=== PATIENT | female | born 1955 | race Caucasian/White ===

== ENCOUNTER 2023-03-21 09:00 | Outpatient (NON) | payer MEDICARE, SELFPAY | END 2023-03-21 09:01 | disposition home or self-care (01) | PROVIDERS: PCP Family Medicine; Visit Provider Internal Medicine Gastroenterology | DX: Z80.0 Family history of malignant neoplasm of digestive organs (principal) | CPT/HCPCS: 88305 ==

== ENCOUNTER 2023-03-21 09:32 | Day surgery (SDC) | payer MEDICARE, SELFPAY ==
[2023-03-01 10:34] VITALS: BMI 32.7
[2023-03-04 14:07] VITALS: BMI 33.0
--- NOTE | 2023-03-18 16:12 | PM.HPGS ---
History of Present Illness History of Present Illness Consent: Risks, benefits, and alternatives have been discussed and questions answered. Patient agrees to proceed with procedure. Chief complaint: History of Colon Polyps, FM. HX. Colon Cancer Narrative: Magaly Lopez is a 67 year old female Referred for colon cancer screening. She has a history of polyps herself. Also there is a family history of colon cancer. Her father had colon cancer. Review of Systems Review of Systems: All systems reviewed & are unremarkable except as noted in HPI and below PMFSH Past Medical History Medical History Alcohol abuse Bowel habit changes Change in weight Chronic cough Fatigue Gallbladder & bile duct stone with obstruction (~1994) Heartburn Hx of one miscarriage Incontinence Painful joint Snoring Tobacco dependence Trouble in sleeping Surgical History Surgical History H/O tubal ligation (~1975) H/O: hysterectomy (~1995) History of cholecystectomy Family History Family History Father Alcoholism Colon cancer Mother Alcoholism Lung cancer Depression Anxiety Grandparent Alcoholism Depression Anxiety Thyroid disorder Social History Social History Smoking packs per day: 1 Smoking cigarettes per day: 20.0 Years smoked: 52 Smoking pack-years: 52.00 Smoking status: Current every day smoker Tobacco type: cigarettes Second hand tobacco smoke exposure: Yes Alcohol intake: current Drinks per week: 21 Alcohol use details: beer Substance use: never Substance use type: does not use Gender identity (if verbalized by the patient): Female Spiritual care concerns: No Meds Home Medications and Allergies Home Medications Medication Instructions Recorded Confirmed Type trazodone 50 mg tablet 50 mg PO QHS PRN Insomnia 07/05/22 03/21/23 History atorvastatin 40 mg tablet 40 mg PO DAILY #90 tabs 01/20/23 03/21/23 Rx sertraline 50 mg tablet 50 mg PO DAILY 03/04/23 03/21/23 History Allergies Allergy/AdvReac Type Severity Reaction Status Date / Time codeine Allergy Unknown Unknown Verified 03/21/23 10:01 Exam Resp: Auscultation: clear to auscultation bilaterally Cardio: Rate: regular rate Rhythm: regular rhythm GI: GI Palp: Yes Soft to palpation and No Tenderness to palpation present (GI) Assessment and Plan Assessment and plan (1) Colon cancer screening: Code(s): Z12.11 - Encounter for screening for malignant neoplasm of colon Status: Acute Assessment and Plan: Colonoscopy with possible biopsy or polypectomy or cautery or injection of substances.
--- NOTE | 2023-03-21 09:29 | P.PNAN_ITS ---
Anes - Initial Pre Proc Eval Procedure: Operation Date: 03/21/23 11:00 Proposed Procedures p Diagnostic Colonoscopy - Vicente Norton MD Date/Time: 03/21/23 09:29 Surgeon: Vicente Norton MD Pre Op Diagnosis: History of Colon Polyps, FM. HX. Colon Cancer Patient Data Age: 67 Gender: F Height: 1.68 m Weight: 93 kg Allergies Allergy/AdvReac Type Severity Reaction Status Date / Time codeine Allergy Unknown Unknown Verified 03/04/23 14:03 Home Medications Medication Instructions Recorded Confirmed Type trazodone 50 mg tablet 50 mg PO QHS PRN Insomnia 07/05/22 03/04/23 History atorvastatin 40 mg tablet 40 mg PO DAILY #90 tabs 01/20/23 03/04/23 Rx sertraline 50 mg tablet 50 mg PO DAILY 03/04/23 03/04/23 History Patient hx anesthesia problems: none Family hx anesthesia problems: none Results Review: All pre-operative results and documents have been reviewed as part of the pre- operative evaluation. [facility] Past Medical History Medical History (Updated 03/21/23 @ 09:31 by Juancarlos Arce MD) Alcohol abuse Bowel habit changes Change in weight Chronic cough Fatigue Gallbladder & bile duct stone with obstruction (~1994) Heartburn Hx of one miscarriage Incontinence Painful joint Snoring Tobacco dependence Trouble in sleeping Surgical History Surgical History H/O tubal ligation (~1975) H/O: hysterectomy (~1995) History of cholecystectomy Family History Family History Father Alcoholism Colon cancer Mother Alcoholism Lung cancer Depression Anxiety Grandparent Alcoholism Depression Anxiety Thyroid disorder Social History Social History Smoking packs per day: 1 Smoking cigarettes per day: 20.0 Years smoked: 52 Smoking pack-years: 52.00 Smoking status: Current every day smoker Tobacco type: cigarettes Second hand tobacco smoke exposure: Yes Alcohol intake: current Drinks per week: 21 Alcohol use details: beer Substance use: never Substance use type: does not use Gender identity (if verbalized by the patient): Female Spiritual care concerns: No Anes - Eval Final PreProcedure Day of Procedure 03/21/23 09:29 Patient weight: obese Heart: regular rate and rhythm Lungs: clear to auscultation and normal air movement Airway: Mallampati scale class II Neurological: alert and oriented Last oral intake: >/= 8 hours ASA classification: III Emergent: no Anesthetic plan: proceed Anesthesia type and monitoring: general GIVS Results Review: All pre-operative results and documents have been reviewed as part of the pre- operative evaluation. Informed Consent: The patient's anesthetic plan and its attendant risks and benefits were discussed with the patient/family/POA. Questions were solicited and answers provided to the satisfaction of the patient/family/POA.
[2023-03-21 10:03] VITALS: BP 128/60; PULSE 82; RESP 16; TEMP 36.5; O2SAT 98
[2023-03-21] MEDS: LACTATED RINGERS 1,000 ML 150 ML IV CONT (10:13)
[2023-03-21 11:38] VITALS: BP 125/76; PULSE 76; RESP 15; O2SAT 98
[2023-03-21 11:48] VITALS: BP 134/83; PULSE 71; RESP 15; O2SAT 99
[2023-03-21 11:58] VITALS: BP 117/82; PULSE 64; O2SAT 97
--- NOTE | 2023-03-21 14:44 | WPDANESPN ---
Anes - Prog Note Post-Op Date/Time: 03/21/23 14:44 Cardiovascular status: normal Respiratory status: normal Airway patency: baseline Mental status: baseline Post-Op hydration status: normal Vital Signs: Last Vital Signs Temp 36.5 C 03/21/23 10:03 Pulse 64 03/21/23 11:58 Resp 15 03/21/23 11:48 BP 117/82 03/21/23 11:58 Pulse Ox 97 03/21/23 11:58 O2 Del Method Room Air 03/21/23 11:58 Pain Score (VAS): 0 I/O: Intake & Output 03/20/23 03/21/23 03/21/23 23:59 07:59 15:59 Intake Total 300 Balance 300 Post-procedural complaints: none Patient Feedback: Patient satisfied with anesthetic care.
--- NOTE | 2023-03-21 14:45 | SUR.OPER ---
Transverse colon tattooed with endoscopic marker Lot [id number] EXP 07/28/2023. Resolution 360 Clip applied transverse colon Lot [id number] Exp 11/08/2025
== END 2023-03-21 12:11 | disposition home or self-care (01) ==
PROVIDERS: PCP Family Medicine; Visit Provider Internal Medicine Gastroenterology
PROC: 0DJD8ZZ Inspection of Lower Intestinal Tract, Via Natural or Artificial Opening Endoscopic (ICD-10-PCS; CPT 45378; principal; 2023-03-21 11:00)
DX: Z12.11 Encounter for screening for malignant neoplasm of colon (principal)
CPT/HCPCS: 45385; 45381

== ENCOUNTER 2023-03-23 09:27 | Outpatient (CLI) | payer MEDICARE, SELFPAY ==
--- NOTE | ~2023-03-23 | MM_ITS ---
EXAMINATION: MM screening chintan BI w sylvain HISTORY: Screening mammogram TECHNIQUE: Craniocaudal and mediolateral oblique 3-D tomosynthesis images were obtained and synthetic 2-D images were generated. CAD analysis was submitted and interpreted. COMPARISON: No prior mammogram is available for comparison at this institution. BREAST PARENCHYMAL COMPOSITION: There are scattered areas of fibroglandular density. FINDINGS: No suspicious mass, calcification, or architectural distortion are identified in either mejia ast to suggest malignancy. IMPRESSION: 1. No mammographic evidence of malignancy. 2. Recommend routine screening mammography in one year. BI-RADS Category 1: Negative Reviewed, dictated and finalized at location A.
--- NOTE | ~2023-03-23 | DEXA_ITS ---
Bone Density Report Name: TAM GAY Age: 67 Sex: Female Ethnicity: White Date of : 1955 Indication: postmenopausal; screening for osteoporosis; height loss; prior fracture; hysterectomy; Referring Provider: MICHELL PUENTES Study: Bone densitometry was performed. Exam Date: March 23, 2023 Accession number: [id number] Bone Density: Region BMD T-score Z-score Classification AP Spine(L1-L4) 0.714 -3.0 -1.1 Osteoporosis Femoral Neck (Left) 0.662 -1.7 0.0 Osteopenia Total Hip (Left) 0.781 -1.3 0.1 Osteopenia Femoral Neck (Right) 0.608 -2.2 -0.5 Osteopenia Total Hip (Right) 0.762 -1.5 -0.1 Osteopenia Total Hip Mean 0.771 -1.4 0.0 Osteopenia World Health Organization criteria for BMD impression classify patients as: Normal (T-score at or above -1.0), Osteopenia (T-score between -1.0 and -2.5), or Osteoporosis (T-score at or below -2.5). 10-year Fracture Risk: FRAX not reported because: Some T-score for Spine Total or Hip Total or Femoral Neck at or below -2.5 Clinical Information Provided by Patient: Has had a low trauma fracture Smokes Has 3 or more alcoholic drinks per day Has used the following medications: Vitamin D, Calcium Has the following medical conditions: Hysterectomy Patient maximum height was 66.5 Menopause Age: 40 No regular weight bearing exercise Drinks caffeinated beverages Onset of menses at age 14 Number of children 2 Impression: The patient has established osteoporosis, based on the Total Spine T-score and the existence of a prior fracture. The patient has risk factors, including: smoking, excessive alcohol use, previous fracture. Discussion: HIGH RISK OF FRACTURE. BONE DENSITY IS UNDESIRABLY LOW AT ONE OR MORE SKELETAL SITES, CONSISTENT WITH POSTMENOPAUSAL OSTEOPOROSIS. This patient's lowest T-score, in a patient who has previously fractured, meets the World Health Organization's (WHO) criteria for severe osteoporosis. In untreated patients, the risk of osteoporotic fracture increases approximately two-fold for each 1.0 SD decrease in T-score. Low bone density is not the only risk factor for fracture; also consider factors such as patient's age, frailty or poor health, risk of falling, risk of injury, previous osteoporotic fracture, family history of osteoporosis, cigarette smoking, low body weight, etc. Not everyone with low bone mineral density has osteoporosis; osteomalacia and other metabolic bone disorders should also be considered. Patients who have osteoporosis should be evaluated for specific diseases and conditions (secondary causes) that may cause or contribute to bone loss. The [place] [employer] (AACE) and National Osteoporosis Foundation (NOF) recommend pharmacologic intervention for all postmenopausal women whose T-score is
== END 2023-03-23 09:28 | disposition home or self-care (01) ==
LOC: ANHIMG 09:29
PROVIDERS: PCP Family Medicine; Visit Provider Family Medicine
DX: Z12.31 Encounter for screening mammogram for malignant neoplasm of breast (principal); Z78.0 Asymptomatic menopausal state; M85.89 Other specified disorders of bone density and structure, multiple sites; M81.0 Age-related osteoporosis without current pathological fracture
CPT/HCPCS: 77063; 77067; 77080

== ENCOUNTER 2024-08-29 12:41 | Emergency (ER) | payer OTHER, SELFPAY ==
--- NOTE | ~2024-08-29 | XR_ITS ---
XR knee RT 3V Ordering provider: Dixie Sagastume NP History: . fall . Comparison: None. FINDINGS: BONES: No acute fracture or dislocation. Possible bipartite patella. JOINT SPACES: Normal. SOFT TISSUES: Normal. IMPRESSION: No definite acute osseous abnormality right knee. Reviewed, dictated and finalized at location A. [employer]
[2024-08-29 12:55] VITALS: BP 168/80; PULSE 76; RESP 20; TEMP 36.4; O2SAT 98
--- NOTE | 2024-08-29 13:11 | ED_ITS ---
HPI - Extremity Injury (Lower) General Chief Complaint: Extremity Injury, Lower Stated Complaint: right knee injury Time Seen by Provider: 08/29/24 13:32 Source: patient and RN notes reviewed Mode of arrival: ambulatory Limitations: no limitations History of Present Illness HPI Narrative: 69 year old female presents with c/f anterior right knee pain. She fell today, reports she tripped on a rug and fell on the front of her knee. She reports knee pressure in pain. Reports little pain with rest but more pain with moving her weight-bearing. She denies decreased range of motion, sensation, strength Related Data Home Medications ?Medication ?Instructions ?Recorded ?Confirmed ?Last Taken ?Type sertraline 50 mg tablet 50 mg PO DAILY 03/04/23 03/21/23 03/20/23 History bupropion HCl 150 mg 24 hr tablet, mg PO 08/29/24 Unknown History extended release Allergies Allergy/AdvReac Type Severity Reaction Status Date / Time codeine Allergy Unknown Unknown Verified 08/29/24 13:05 Review of Systems Review of Systems: CONSTITUTIONAL: Denies malaise, chills, sweats, or fever. SKIN: Denies rash or itching, open skin, laceration, abrasion, redness, warmth, swelling. MUSCULOSKELETAL: Reports right knee pain NEUROLOGIC: Denies numbness, weakness All systems reviewed & are unremarkable except as noted in HPI and below PMFSH Past Medical History Medical History Alcohol abuse Bowel habit changes Change in weight Chronic cough Fatigue Gallbladder & bile duct stone with obstruction (~1994) Heartburn Hx of one miscarriage Incontinence Painful joint Snoring Tobacco dependence Trouble in sleeping Surgical History Surgical History H/O tubal ligation (~1975) H/O: hysterectomy (~1995) History of cholecystectomy Family History Family History Father Alcoholism Colon cancer Mother Alcoholism Lung cancer Depression Anxiety Advanced dementia Grandparent Alcoholism Depression Anxiety Thyroid disorder Sibling Advanced dementia Sibling Moderate Alzheimer's dementia Social History Social History Smoking packs per day: 1 Smoking cigarettes per day: 20.0 Years smoked: 52 Smoking pack-years: 52.00 Smoking status: Current every day smoker Tobacco type: cigarettes Second hand tobacco smoke exposure: Yes Alcohol intake: current Drinks per week: 21 Alcohol use details: beer Substance use: never Substance use type: does not use Gender identity (if verbalized by the patient): Female Spiritual care concerns: No Comments At time of signature, agree with nursing past medical, surgical, social and family history. There is no relevant family history pertinent to the presenting complaint Exam Narrative: GENERAL: Well-appearing, well-nourished, and in no acute distress. HEAD: Normocephalic, atraumatic. EYES: PERRLA, conjunctivae clear NECK: Supple. CHEST: Speaks in full sentences. No respiratory distress. HEART: Regular rate and rhythm. Normal and equal peripheral pulses. EXTREMITIES: Right knee has grossly normal strength and sensation, grossly normal range of motion. Mild anterior edema or ecchymosis. Normal sensation with sensitivity to light touch and pain. Anterior tenderness. No open wounds, no skin tenting, no devitalized tissue or atrophy, no trophic changes, no obvious deformity, alignment normal, nearby joints and structures intact. Distal pulses palpable and equal bilaterally, skin warm, dry, pink. Capillary refill less than 3 seconds. SKIN: Warm, dry, no rash. NEURO: Alert and oriented x3. PSYCH: Normal mood and affect Course Course Emergency Course: Patient is aware of diagnosis, understands and agrees to treatment plan. Anticipatory guidance given. Patient agrees to follow-up as directed and is a coffman of reasons to seek care at the emergency department. Portions of this record may have been created with voice recognition software Level of Care: Express Care Visit Vital Signs Vital signs: Vital Signs Temperature 97.5 F L 08/29/24 12:55 Pulse Rate 76 08/29/24 12:55 Respiratory Rate 20 08/29/24 12:55 Blood Pressure 168/80 H 08/29/24 12:55 Pulse Oximetry 98 08/29/24 12:55 Oxygen Delivery Room Air 08/29/24 12:55 Temperature 97.5 F L 08/29/24 12:55 Pulse Rate 76 08/29/24 12:55 Respiratory Rate 20 08/29/24 12:55 Blood Pressure 168/80 H 08/29/24 12:55 Pulse Oximetry 98 08/29/24 12:55 Oxygen Delivery Room Air 08/29/24 12:55 Reviewed. MDM - Extremity Injury (Lower) MDM Narrative Medical decision making narrative: Patients injury and pain is consistent with musculoskeletal etiology. No signs of neurological or vascular compromise on exam. Compartments and tissues are soft without signs of compartment syndrome. Pain is felt appropriate for further evaluation on an outpatient basis. Imaging Data My impression: Images reviewed, interpreted by radiologist, agree, see report. Radiologist's impression: XR knee RT 3V Ordering provider: Dixie Sagastume NP History: . fall . Comparison: None. FINDINGS: BONES: No acute fracture or dislocation. Possible bipartite patella. JOINT SPACES: Normal. SOFT TISSUES: Normal. IMPRESSION: No definite acute osseous abnormality right knee. Critical Care Time Critical Care Time Critical Care Time: No Discharge Plan Discharge Clinical Impression: Acute knee pain Patient Disposition: Home, Self-Care Condition: Stable Instructions: Knee Pain (ED) Additional Instructions: Your x-ray is normal Avoid activities that cause pain until the pain subsides. Ice to the area 20-30 minutes 4-6 times a day Elevate above heart Elastic wrap as directed for comfort for the next 5-7 days Tylenol for lesser pain Ibuprofen regularly for the next 2-3 days for the inflammation Follow up with your primary care provider if the condition is not improving within 1 week. If the condition worsens with numbness, tingling, decrease sensation with weakness seek treatment in the emergency room immediately. Patient Language: Tamaz[place] Prescriptions: No Action bupropion HCl 150 mg tablet extended release 24 hr PO trazodone 100 mg tablet 100 mg PO QHS PRN (Reason: sleep) Qty: 90 0RF varenicline [Chantix] 1 mg tablet 1 mg PO BID Qty: 60 0RF atorvastatin 40 mg tablet 40 mg PO DAILY Qty: 90 1RF prazosin 1 mg capsule See Rx Instructions .ROUTE .COMPLEX Qty: 60 0RF Dose Instruction: TAKE 1 CAPSULE BY MOUTH EVERY DAY AT BEDTIME Rx Instructions: TAKE 1 CAPSULE BY MOUTH EVERY DAY AT BEDTIME alendronate 70 mg tablet 70 mg PO WEEKLY Qty: 14 1RF sertraline 50 mg tablet 50 mg PO DAILY Follow-up/Referrals: Deshawn Byrd MD [Primary Care Provider] -
== END 2024-08-29 13:50 | disposition home or self-care (01) ==
PROVIDERS: Emergency Provider Nurse Practitioner; PCP Family Medicine
DX: M25.561 Pain in right knee (principal); F17.210 Nicotine dependence, cigarettes, uncomplicated; R12 Heartburn
CPT/HCPCS: 73562; 99213; G0463

== ENCOUNTER 2024-11-13 09:00 | Outpatient (CLI) | payer OTHER, SELFPAY ==
--- NOTE | ~2024-11-13 | CT_ITS ---
CT Scan of the Chest without Contrast: Clinical Indication: Lung cancer screening, nicotine dependence Technique: Contiguous sections were acquired throughout the chest without intravenous contrast. Dose reduction technique was used on this scan by utilizing automated exposure control and iterative recon struction technique. The dose-length product (DLP) was 138.92 mGy-cm. Findings: There is no evidence of any significant mediastinal, hilar or axillary lymphadenopathy. The coronary artery calcifications are present. There is no evidence of pleural or pericardial effusion. No pulmonary nodules seen. There is lingular scarring. Images through the upper abdomen reveal bilateral low-density adrenal nodules, compatible adenomas. Impression: Lung RADS 1: Negative. 12 month follow-up screening CT advised. Reviewed, dictated and finalized at location . [facility]IDER Impression: Lung RADS 1: Negative. 12 month follow-up screening CT advised.
--- OUTSIDE RECORDS SUMMARY | 2024-11-13 09:42 | XMS_ITS ---
Author Organization [facility] Address [address] [place] [address] Care Team Providers Care Division Human Resources Manager Name Role Phone Deshawn Byrd MD Primary Care Provider UnavailChantell Peter Unavailable [phone] Allergies Allergen (clinical drug ingredient) Drug/Non Drug Allergy documented on EMR Reaction Allergy Type Onset Date Status codeine Codeine Unknown Drug Allergy 11/21/2023 Active REASON FOR VISIT Follow up depression, anxiety, insomnia Medications Medication SIG (Take, Route, Frequency, Duration) Notes Start Date End Date Status traZODone HCl 100 MG 1 tablet at bedtime as needed for sleep Oral Once a day for 90 days As needed 11/21/2023 Active PriLOSEC OTC 20 MG 1 tablet 1/2 to 1 ho ur before morning meal Orally Once a day Active Pravastatin Sodium 20 MG Oral 11/21/2023 Active Atorvastatin Calcium 40 MG Oral 11/21/2023 Active Alendronate Sodium 70 MG Oral 11/21/2023 Active buPROPion HCl ER (XL) 150 MG 1 tablet in the morning Orally Once a day for 30 days 08/27/2024 Active Vitamin D3 Adult Gummies 25 MCG (1000 UT) Oral 11/21/2023 Active Sertraline HCl 100 MG 1 tablet every mor sandoval Oral Once a day for 90 days 11/21/2023 Active Social History Tobacco Use: Social History Observation Description Date Details (start date - stop date) Former Smoker NA - 02/19/2024 Sex Assigned At : Social History Observation Description Sex Assigned At Female Tobacco Control (Standard) Question Answer Notes Tobacco use: Former smoker When did you stop smoking? 02/19/2024 How long has it been since you last smoked? 6-12 months AUDIT-C (Standard) Question Answer Notes Did you have a drink contain ing alcohol in the past year? Yes How often did you have six o r more drinks on one occasion in the past year? Less than monthly (1 point) How many drinks did you have on a typical day when you were drinking in the past year? 3 or 4 drinks (1 point) How often did you have a dri nk containing alcohol in the past year? Daily or almost daily (4 points) Points 6 Interpretation Positive Problems Problem Type SNOMED Code ICD Code Onset Dates Problem Status W/U Status Risk Notes Problem Mild recurrent major depression (44398249) Major depressive disorder, recurrent, mild (F33.0) 2 Active confirmed Problem Primary insomnia (7396283) Primary insomnia (F51.01) 4 Active confirmed Problem Current drinker of alcohol (finding) (616912) Alcohol use, unspecified, uncomplicated (F10.90) 4 Active confirmed Problem Tobacco user (083711518) Nicotine dependence, unspecified, uncomplicated (F17.200) 4 Active confirmed Encounters Encounter Location Date Provider Diagnosis [facility] [address] [place] [address] [address] [place] [address] 08/27/2024 Chantell Charlie Generalized anxiety disorder F41.1 ; Major depressive disorder, recurrent, mild F33.0 ; Primary insomnia F51.01 and Alcohol use, unspecified, uncomplicated F10.90 Assessments Encounter Date Diagnosis (ICD Code) Assessment Notes Treatment Notes Treatment Clinical Notes Section Notes 08/27/2024 Generalized anxiety disorder (ICD-10 - F41.1) Assessment and Plan: 1. Depression - experiencing benefits from current antidepressant regimen, yet reports persistent lack of motivation and occasional depressive symptoms - Plan: - continue sertraline 100 mg daily - start weelbutrin XL 150 mg daily in the morning to address lack of motivation and residual depressive symptoms. Monitor for any increase or decrease in anxiety 2. Anxiety: - overall well-controlled - Plan: - Continue Sertraline 100 mg daily 3. Insomnia - reports effective management - Plan: - Continue Trazodone 100 mg nightly as needed. 4. Substance Use: - reports moderate alcohol consumption and history of heavier drinking, has quit smoking but notes occasional cravings - Plan: - Encourage moderation in alcohol consumption and monitor intake. - Discussed risks of alcohol consumption and psychotropic medications - Observe Bupropion's effectiveness on drinking and smoking cravings; discuss at follow-up. Follow-Up in 2 months, sooner if concerns arise 08/27/2024 Major depressive disorder, recurrent, mild (ICD-10 - F33.0) Assessment and Plan: 1. Depression - experiencing benefits from current antidepressant regimen, yet reports persistent lack of motivation and occasional depressive symptoms - Plan: - continue sertraline 100 mg daily - start weelbutrin XL 150 mg daily in the morning to address lack of motivation and residual depressive symptoms. Monitor for any increase or decrease in anxiety 2. Anxiety: - overall well-controlled - Plan: - Continue Sertraline 100 mg daily 3. Insomnia - reports effective management - Plan: - Continue Trazodone 100 mg nightly as needed. 4. Substance Use: - reports moderate alcohol consumption and history of heavier drinking, has quit smoking but notes occasional cravings - Plan: - Encourage moderation in alcohol consumption and monitor intake. - Discussed risks of alcohol consumption and psychotropic medications - Observe Bupropion's effectiveness on drinking and smoking cravings; discuss at follow-up. Follow-Up in 2 months, sooner if concerns arise 08/27/2024 Primary insomnia (ICD-10 - F51.01) Assessment and Plan: 1. Depression - experiencing benefits from current antidepressant regimen, yet reports persistent lack of motivation and occasional depressive symptoms - Plan: - continue sertraline 100 mg daily - start weelbutrin XL 150 mg daily in the morning to address lack of motivation and residual depressive symptoms. Monitor for any increase or decrease in anxiety 2. Anxiety: - overall well-controlled - Plan: - Continue Sertraline 100 mg daily 3. Insomnia - reports effective management - Plan: - Continue Trazodone 100 mg nightly as needed. 4. Substance Use: - reports moderate alcohol consumption and history of heavier drinking, has quit smoking but notes occasional cravings - Plan: - Encourage moderation in alcohol consumption and monitor intake. - Discussed risks of alcohol consumption and psychotropic medications - Observe Bupropion's effectiveness on drinking and smoking cravings; discuss at follow-up. Follow-Up in 2 months, sooner if concerns arise 08/27/2024 Alcohol use, unspecified, uncomplicated (ICD-10 - F10.90) Assessment and Plan: 1. Depression - experiencing benefits from current antidepressant regimen, yet reports persistent lack of motivation and occasional depressive symptoms - Plan: - continue sertraline 100 mg daily - start weelbutrin XL 150 mg daily in the morning to address lack of motivation and residual depressive symptoms. Monitor for any increase or decrease in anxiety 2. Anxiety: - overall well-controlled - Plan: - Continue Sertraline 100 mg daily 3. Insomnia - reports effective management - Plan: - Continue Trazodone 100 mg nightly as needed. 4. Substance Use: - reports moderate alcohol consumption and history of heavier drinking, has quit smoking but notes occasional cravings - Plan: - Encourage moderation in alcohol consumption and monitor intake. - Discussed risks of alcohol consumption and psychotropic medications - Observe Bupropion's effectiveness on drinking and smoking cravings; discuss at follow-up. Follow-Up in 2 months, sooner if concerns arise Plan Of Treatment Medication Medication Name Sig Start Date Stop Date Notes traZODone HCl 100 MG 1 tablet at bedtime as needed for sleep Oral Once a day for 90 days 11/21/2023 buPROPion HCl ER (XL) 150 MG 1 tablet in the morning Orally Once a day for 30 days 08/27/2024 Sertraline HCl 100 MG 1 tablet every mor sandoval Oral Once a day for 90 days 11/21/2023 Next Appt Details Follow Up: 2 Months, Reason: Provider Name:Divina Huff , 01/25/2025 11:00:00 AM, [address], [facility] [address], [place], [address], Progress Notes * TAM GAY KDOB: [birth year] (69 yo F)Acc No.[id number]:08/27/2024 Patient: TAM GALLO Provider: Any Guerra :1955 A ge:69 Y S ex:Female Date:08/27/2024 Address:[address] [place] [address], [address] Subjective: * Chief Complaints: * F ollow up depression, anxiety, insomnia * HPI: H istory of Presenting Problem: 69 y/o, female, 40 years, 2 grown kids, here for follow up related to depression, anxiety, insomnia. 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 Occasional down moods and depression, h as been struggling with lack of motivation and interest. Feeling more blah some days. Denies anxiety, no panic attacks. No issues with appetite, sleeping well with trazodone. Has been trying to go to the gym more consistently, PCP recommended. Lack of motivation and interest have been challenging. No concerns with memory, no falls. denies medical changes Substance update: ETOH: 3-4 b eers a day, throughout the evening just sips on it, I don't drink enough t o get drunk . caffeine in morning, denies cannabis, other drugs denies, quit smoking in February, still has cravings. D epression screening: PHQ-9 L ittle interest or pleasure in doing things M ore than half the days, F eeling down, depressed, or hopeless S ever, T rouble falling or staying asleep, or sleeping too much S ever, F eeling tired or having little energy M ore than half the days, P oor appetite or overeating N ot at all, F eeling bad about yourself or that you are a failure, or have let yourself or your family down N ot at all, T rouble concentrating on things, such as reading the newspaper or watching television S ever, M oving or speaking so slowly that other people could have noticed; or the opposite, being so fidgety or restless that you have been moving around a lot more than usual N ot at all, T houghts that you would be better off or of hurting yourself in some way N ot at all, T otal Score 7 , I nterpretation M ild Depression. I ntervention D epression Screening Findings P ositvitaly, F ollow-Up for Depression M ental health treatment assessment, Patient follow-up to return when and if necessary, S uicide Risk Assessment Performed 08/27/2024, A dditional Evaluation for Depression P sychiatric interview and evaluation,?Name of the standardized tool used for adult depression screening: P atient Health Questionnaire (PHQ-9). D epression Screening: CLARE-7 (2018 Edition) F eeling nervous, anxious, or on edge?Several days, N ot being able to stop or control worrying N ot at all, W orrying too much about different things N ot at all, T rouble relaxing N ot at all, B eing so restless that it is hard to sit still N ot at all, B ecoming easily annoyed or irritable?Several days, F eeling afraid as if something awful might happen N ot at all, T otal CLARE-7 Score 2 , I nterpretation of Total ( 0 to 4) No Anxiety. C [place]-Suicide Severity Rating Scale: Suicide Risk (CSRS-screener) i n the past one month Have you wished you were or wished you could go to sleep and not wake up? N o, i n the past one month Have you actually had any thoughts of killing yourself? N o, H ave you ever done anything, started to do anything, or prepared to do anything to end your life? N o. * ROS: G eneral / Constitutional: Patient denies c hange in appetite, fatigue, headache, lightheadedness, sleep disturbance, weight gain, weight loss. C ardiovascular: Patient denies c hest pain, dizziness, palpitations, swelling in hands / feet. G astrointestinal: Patient denies a bdominal pain, change in bowel habits, nausea, vomiting, difficulty swallowing. N eurologic: Patient denies b alance difficulty, confusion, dizziness, fainting, headache, irritability, tremor, tic, seizures. P sychiatric: Patient denies s uicidal thoughts, psychosis, auditory / visual hallucinations, delusions, alina. C pino S iveth HPI for more details. * Medical History: * Surgical History: O ophorectomy (95393) 05/20/1998Hysterectomy (97598) 05/20/1998foot surgery 05/20/1998Removal of gallbladder (82981) 07/01/1997 * Hospitalization/Major Diagno stic Procedure: D enies Past Hospitalization * Family History: F ather: Alcohol abuse . M other: Depressive disorder , Alcohol abuse , Malignant neoplastic disease . M aternal Grandfather: Suicide , Depressive disorder , Alcohol abuse . B rother: Alcohol abuse , Depressive disorder . * Social History: T obacco Use: T obacco Control (Standard) T obacco use: F ormer smoker, W hen did you stop smoking? 0 02/19/2024, H ow long has it been since you last smoked? 6 -12 months. D rug/Alcohol: D rugs H ave you used drugs other than those for medical reasons in the past 12 months??No. C affeine I ntake: 1 -2 cups per day. D o you drink alcohol?: Yes, Daily. AUDIT-C (Standard) D id you have a drink containing alcohol in the past year? Y es, H ow often did you have six or more drinks on one occasion in the past year? L ess than monthly (1 point), H ow many drinks did you have on a typical day when you were drinking in the past year? 3 or 4 drinks (1 point), H ow often did you have a drink containing alcohol in the past year? Daily or almost daily (4 points), P oints 6 , I nterpretation P ositive. * Medications: T akingPriLOSEC OTC 20 MG Tablet Delayed Release 1 tablet 1/2 to 1 hour before morning meal Orally Once a day Pravastatin Sodium 20 MG Tablet Oral Atorvastatin Calcium 40 MG Tablet Oral traZODone HCl 100 MG Tablet Oral Alendronate Sodium 70 MG Tablet Oral Vitamin D3 Adult Gummies 25 MCG (1000 UT) Tablet Chewable Oral Sertraline HCl 100 MG Tablet 1 tablet every morning Oral Once a day no further refills without another appointment, Notes to Pharmacist: no more refills without another appointmentMedication List reviewed and reconciled with the patientTaking PriLOSEC OTC 20 MG Tablet Delayed Release 1 tablet 1/2 to 1 hour before morning meal Orally Once a day Taking Pravastatin Sodium 20 MG Tablet Oral Taking Atorvastatin Calcium 40 MG Tablet Oral Taking traZODone HCl 100 MG Tablet Oral Taking Alendronate Sodium 70 MG Tablet Oral Taking Vitamin D3 Adult Gummies 25 MCG (1000 UT) Tablet Chewable Oral Taking Sertraline HCl 100 MG Tablet 1 tablet every morning Oral Once a day no further refills without another appointment, Notes to Pharmacist: no more refills without another appointmentMedication List reviewed and reconciled with the patient * Allergies: C odeine: Allergy - Onset Date 11/21/2023no[Allergies Verified] Objective: * Vitals: * Examination: G eneral Examination: General appearance: a lert, pleasant, well-nourished and in no acute distress. P sychiatry: Appearance: w ell-groomed, well-nourished, appears stated age. Abnormal body movements: n one. Affect / mood: a ppropriate, full range. Attention: g ood, normal in conversation. Attitude: c ooperative, open-minded with collaborative approach. Homicidal ideation: n one. Suicidal ideation: n one. Memory status: n o impairment noted. Delusions: n o. Hallucinations: n o. Insight: g ood. Intellectual functioning: n o impairment noted. Judgement: g ood. Orientation: a wake, alert and oriented x 3. Speech / language: a ppropriate pitch/modulation, clear and coherent, normal rate, volume, and articulation (RVR), proper grammar used. Thought content: a ppropriate. Thought process: i ntact. Assessment: * Assessment: 1. M ajor depressive disorder, recurrent, mild - F33.0 (Primary) 2 . G eneralized anxiety disorder - F41.1 3 . P rimary insomnia - F51.01 4 . A lcohol use, unspecified, uncomplicated - F10.90 Assessment and Plan: 1. Depression - experiencing benefits from current antidepressant regimen, yet reports persistent lack of motivation and occasional depressive symptoms - Plan: - continue sertraline 100 mg daily - start weelbutrin XL 150 mg daily in the morning to address lack of motivation and residual depressive symptoms. Monitor for any increase or decrease i n anxiety 2. Anxiety: - overall well-controlled - Plan: - Continue Sertraline 100 mg daily 3. Insomnia - reports effective management - Plan: - Continue Trazodone 100 mg nightly as needed. 4. Substance Use: - reports moderate alcohol consumption and history of heavier drinking, has quit smoking but notes occasional cravings - Plan: - Encourage moderation in alcohol consumption and monitor intake. - Discussed risks of alcohol consumption and psychotropic medications - Observe Bupropion's effectiveness on drinking and smoking cravings; discuss at follow-up. Follow-Up in 2 months, sooner if concerns arise Plan: * Treatment: 2. G eneralized anxiety disorder Refill Sertraline HCl Tablet, 100 MG, 1 tablet every morning, Oral, Once a day, 90 days, 90, Refills 0. 3. P rimary insomnia Refill traZODone HCl Tablet, 100 MG, 1 tablet at bedtime as needed for sleep, Oral, Once a day As needed, 90 days, 90 Tablet, Refills 0. * Procedure Codes: 9 6127 BEHAV ASSMT W/SCORE & DOCD/STAND [id number] VISIT COMPLEXITY INHERENT TO ONGOING CARE RELATED TO A PATIENT'S SINGLE, SERIOUS CONDITION OR A COMPLEX [id number] CLIN DEPRESSION SCREEN [id number] Screen unhlthy etoh use * Preventive Medicine: Counseling: S afety: D iscussed the risk and benefits of medication(s)? Y es. Screenings: D epression screening H ave you had a recent depression screening??Yes, D ate of depression screenin 10/28/2023. A lcohol misuse screening H ave you had a recent alcohol misuse screening? Y es, D ate of alcohol misuse screenin 10/28/2023. * Follow Up: 2 Months * Billing Information: * Visit Code: 71907 OFFICE OUTPATIENT VISIT 25 MINUTES DETAILED HISTORY AND EXAM/MODERATE MEDICAL DECISION MAKING. * Procedure Codes: 95571 BEHAV ASSMT W/SCORE & DOCD/STAND INSTRUMENT. G2211 VISIT COMPLEXITY INHERENT TO ONGOING CARE RELATED TO A PATIENT'S SINGLE, SERIOUS CONDITION OR A COMPLEX CONDITION. G8431 CLIN DEPRESSION SCREEN DOC. G2196 Screen unhlthy etoh use. * LITY PLANNER Electronically co-signed by Tereso Padilla MD on 09/13/2024 at 08:24 AM FACILITY PLANNER Sign off status: Completed true * Provider: Any Guerra Date: 10/28/2023 Generated for Grant hamlin/Charla/Kat on: 0 11/13/2024 09:42 AM FACILITY PLANNER History and Physical Notes * HPI (History of Present Illness) Category Sub-Category Detail Notes Category Not es History of Presenting Problem 69 y/o, female, 40 years, 2 grown kids, here for follow up related to depression, anxiety, insomnia. 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 Occasional down moods and depression, has been struggling with lack of motivation and interest. Feeling more blah some days. Denies anxiety, no panic attacks. No issues with appetite, sleeping well with trazodone. Has been trying to go to the gym more consistently, PCP recommended. Lack of motivation and interest have been challenging. No concerns with memory, no falls. denies medical changes Substance update: ETOH: 3-4 beers a day, throughout the evening just sips on it, I don't drink enough to get drunk . caffeine in morning, denies cannabis, other drugs denies, quit smoking in February, still has cravings. Depression screening PHQ-9 Little inte rest or pleasure in doing things: More than half the days Feeling down, depressed, or hopeless: Se veral days Trouble falling or staying asleep, or sl eeping too much: Several days Feeling tired or having little energy: M ore than half the days Poor appetite or overeating: Not at all Feeling bad about yourself o r that you are a failure, or have let yourself or your family down: Not at all Trouble concentrating on thi ngs, such as reading the newspaper or watching television: Several days Moving or speaking so slowly that other people could have noticed; or the opposite, being so fidgety or restless that you have been moving around a lot more than usual: Not at all Thoughts that you would be b willy off or of hurting yourself in some way: Not at all Total Score: 7 Interpretation: Mild Depression Intervention Depression Screening Findings: P ositve Follow-Up for Depression: [facility] treatment assessment, Patient follow-up to return when and if necessary Suicide Risk Assessment Performed: 08/27 Additional Evaluation for Depression: Ps ychiatric interview and evaluation Name of the standardized too l used for adult depression screening:: Patient Health Questionnaire (PHQ-9) Depression Screening CLARE-7 (2018 Edition) Feelin g nervous, anxious, or on edge: Several days Not being able to stop or control worryi ng: Not at all Worrying too much about different things : Not at all Trouble relaxing: Not at all Being so restless that it is hard to sit still: Not at all Becoming easily annoyed or irritable: Se veral days Feeling afraid as if something awful dee dee ht happen: Not at all Total CLARE-7 Score: 2 Interpretation of Total: (0 to 4) No Anx iety [place]-Suicide Severity Rating Scale Suicide Risk (CSRS-screener) in the past one month Have you wished you were or wished you could go to sleep and not wake up?: No in the past one month Have y ou actually had any thoughts of killing yourself?: No Have you ever done anything, started to do anything, or prepared to do anything to end your life?: No Examination Category Sub-Category Detail Notes Category Not es Psychiatry Appearance: well-groomed, we ll-nourished, appears stated age Attitude: cooperative, open-mi nded with collaborative approach Abnormal body movements: none Attention: good, normal in conv ersation Orientation: awake, alert and wilda ented x 3 Affect / mood: appropriate, full ra nge Speech / language: appropriate pitch/mo dulation, clear and coherent, normal rate, volume, and articulation (RVR), proper grammar used Insight: good Judgement: good Thought process: intact Thought content: appropriate Suicidal ideation: none Homicidal ideation: none Intellectual functioning: no impairment noted Memory status: no impairment noted Delusions: no Hallucinations: no General Examination General appearance: alert, p leasant, well-nourished and in no acute distress
--- OUTSIDE RECORDS SUMMARY | 2024-11-13 09:42 | XMS_ITS ---
Author Organization [facility] Address [address] [facility] [address] [facility] [address] [place] [address] Care Team Providers Care Ager Operator Name Role Phone Deshawn Byrd MD Primary Care Provider Chantell Hand Unavailable [phone] REASON FOR VISIT Refills Medications Medication SIG (Take, Route, Frequency, Duration) Notes Start Date End Date Status Sertraline HCl 100 MG 1 tablet every morning Oral Once a day for 30 days no further refills without another appointment no more refills without another appointment 11/21/2023 Active Social History Sex Assigned At : Social History Observation Description Sex Assigned At Female Encounters Encounter Location Date Provider Diagnosis [facility] [place] [address] [facility] [address] [address] 08/24/2024 Chantell Guerra Plan Of Treatment Medication Medication Name Sig Start Date Stop Date Notes Sertraline HCl 100 MG 1 tablet every morning Oral Once a day for 30 days 11/21/2023 no more refills with out another appointment Next Appt Details Provider Name:Divina Daria , 01/25/2025 11:00:00 AM, [address] [facility], [facility] [address], [place], [address], Progress Notes * TAM GAY KDOB: [birth year] (69 yo F)Acc No.[id number]:08/24/2024 Patient: Dale TAM WINTER :1955 A ge:69 Y S ex:Female Address:[address] [place] [address], [address], [place], [address] * Refills Refill Sertraline HCl Tablet, 100 MG, Oral, 30 Tablet, 1 tablet every morning, Once a day, 30 days, Refills=0 Subjective: * Chief Complaints: * R efills * Medical History: * Surgical History: * Hospitalization/Major Diagno stic Procedure: * Medications: Objective: * Vitals: * Physical Examination: Assessment: Plan: * Treatment: * Procedure Codes: * true * Date: Generated for Grant hamlin/Charla/Kat on: 0 11/13/2024 09:42 AM [employer]
--- OUTSIDE RECORDS SUMMARY | 2024-11-13 09:42 | XMS_ITS ---
Author Organization [facility] Address [address] [place] [address] Care Team Providers Care Rib Bender Name Role Phone Deshawn Byrd MD Primary Care Provider UnavailChantell Peter Unavailable [phone] Allergies Allergen (clinical drug ingredient) Drug/Non Drug Allergy documented on EMR Reaction Allergy Type Onset Date Status codeine Codeine Unknown Drug Allergy 11/21/2023 Active REASON FOR VISIT Follow-up for medication management Medications Medication SIG (Take, Route, Frequency, Duration) Notes Start Date End Date Status Atorvastatin Calcium 40 MG Oral 11/21/2023 Active buPROPion HCl ER (XL) 150 MG 1 tablet in the morning Orally Once a day for 90 days Active Sertraline HCl 100 MG 1 tablet every mor sandoval Oral Once a day for 90 days Active Vitamin D3 Adult Gummies 25 MCG (1000 UT) Oral 11/21/2023 Active Alendronate Sodium 70 MG Oral 11/21/2023 Active PriLOSEC OTC 20 MG 1 tablet 1/2 to 1 ho ur before morning meal Orally Once a day Active traZODone HCl 100 MG 1 tablet at bedtime as needed for sleep Oral Once a day for 90 days As needed Active Social History Tobacco Use: Social History [...] daily (4 points) Points 6 Interpretation Positive Vital Signs Blood pressure systolic 150 mm Hg 10/29/19 25 Blood pressure diastolic 76 mm Hg 025 Height 66.00 in 10/29/2024 Weight 206 lbs 10/29/2024 BMI 33.25 kg/m2 10/29/2024 Height-cm 167.64 cm 10/29/2024 Weight-kg 93.44 kg 10/29/2024 Encounters Encounter Location Date Provider Diagnosis [facility] [address] [facility] [address] [place] [address] 10/29/2024 Chantell Guerra Generalized anxiety disorder F41.1 ; Major depressive disorder, recurrent, mild F33.0 ; Primary insomnia F51.01 and Alcohol use, unspecified, uncomplicated F10.90 Assessments Encounter Date Diagnosis (ICD Code) Assessment Notes Treatment Notes Treatment Clinical Notes Section Notes 10/29/2024 Generalized anxiety disorder (ICD-10 - F41.1) Assessment and Plan: Depression - Stable, improved mood and motivation with adding bupropion XL Plan: - continue sertraline 100 mg daily - Continue bupropion XL 150 mg daily in the morning Anxiety - overall well-controlled Plan: - Continue Sertraline 100 mg daily Insomnia - reports effective management Plan: - Continue Trazodone 100 mg nightly as needed. Alcohol Use - reports moderate alcohol consumption, 3-4 drinks daily, history of heavier drinking Plan: - Encourage moderation in alcohol consumption and monitor intake. - Discussed risks of alcohol consumption and psychotropic medications Follow-Up in 3 months, sooner if concerns arise 10/29/2024 Major depressive disorder, recurrent, mild (ICD-10 - F33.0) Assessment and Plan: Depression - Stable, improved mood and motivation with adding bupropion XL Plan: - continue sertraline 100 mg daily - Continue bupropion XL 150 mg daily in the morning Anxiety - overall well-controlled Plan: - Continue Sertraline 100 mg daily Insomnia - reports effective management Plan: - Continue Trazodone 100 mg nightly as needed. Alcohol Use - reports moderate alcohol consumption, 3-4 drinks daily, history of heavier drinking Plan: - Encourage moderation in alcohol consumption and monitor intake. - Discussed risks of alcohol consumption and psychotropic medications Follow-Up in 3 months, sooner if concerns arise 10/29/2024 Primary insomnia (ICD-10 - F51.01) Assessment and Plan: Depression - Stable, improved mood and motivation with adding bupropion XL Plan: - continue sertraline 100 mg daily - Continue bupropion XL 150 mg daily in the morning Anxiety - overall well-controlled Plan: - Continue Sertraline 100 mg daily Insomnia - reports effective management Plan: - Continue Trazodone 100 mg nightly as needed. Alcohol Use - reports moderate alcohol consumption, 3-4 drinks daily, history of heavier drinking Plan: - Encourage moderation in alcohol consumption and monitor intake. - Discussed risks of alcohol consumption and psychotropic medications Follow-Up in 3 months, sooner if concerns arise 10/29/2024 Alcohol use, unspecified, uncomplicated (ICD-10 - F10.90) Assessment and Plan: Depression - Stable, improved mood and motivation with adding bupropion XL Plan: - continue sertraline 100 mg daily - Continue bupropion XL 150 mg daily in the morning Anxiety - overall well-controlled Plan: - Continue Sertraline 100 mg daily Insomnia - reports effective management Plan: - Continue Trazodone 100 mg nightly as needed. Alcohol Use - reports moderate alcohol consumption, 3-4 drinks daily, history of heavier drinking Plan: - Encourage moderation in alcohol consumption and monitor intake. - Discussed risks of alcohol consumption and psychotropic medications Follow-Up in 3 months, sooner if concerns arise Plan Of Treatment Medication Medication Name Sig Start Date Stop Date Notes buPROPion HCl ER (XL) 150 MG 1 tablet in the morning Orally Once a day for 90 days Sertraline HCl 100 MG 1 tablet every mor sandoval Oral Once a day for 90 days traZODone HCl 100 MG 1 tablet at bedtime as needed for sleep Oral Once a day for 90 days Next Appt Details Follow Up: 3 Months, Reason: Provider Name:Divina Huff , 01/25/2025 11:00:00 AM, [address], [facility] [address], [place], [address], Progress Notes * TAM GAYOB: [birth year] (69 yo F)Acc No.[id number]:10/29/2024 Patient: TAM GALLO Provider: Any Guerra :1955 A ge:69 Y S ex:Female Date:10/29/2024 Address:[address] [place] [address], [address] Pcp:Deshawn Byrd MD Subjective: * Chief Complaints: * F ollow-up for medication management * HPI: D epression Screening: CLARE-7 (2018 Edition) F [...] T otal CLARE-7 Score 2 , I f you checked any problems, how difficult have they made it for you to do your work, take care of things at home, or get along with other people? N ot difficult at all,?Interpretation of Total ( 0 to 4) No [...] anything to end your life? N o. D epression screening: PHQ-9 L ittle interest or pleasure in doing things N ot at all, F eeling down, depressed, or hopeless N ot at all, T rouble falling or staying asleep, or sleeping too much N ot at all, F eeling tired or having little energy N ot at all, P oor appetite or overeating N ot at all, F eeling bad about yourself or that you are a failure, or have let yourself or your family down N ot at all, T rouble concentrating on things, such as reading the newspaper or watching television N ot at all, M oving or speaking so slowly that other people could have noticed; or the opposite, being so fidgety or restless that you have been moving around a lot more than usual N ot at all, T houghts that you would be better off or of hurting yourself in some way N ot at all, T otal Score 0 , I nterpretation M inimal Depression. I ntervention D epression Screening Findings N egative, S uicide Risk Assessment Performed . H istory of Presenting Problem: This note is transcribed using speech recognition software. It is a reflection of a visit with the patient. It might have some inaccuracy, including medication names and transcribing errors, though efforts have been made to correct them. 69 y/o, female, 40 years, 2 grown kids, here for follow up related to depression, anxiety, insomnia. Stressors: she is POA for brother who has dementia (he is in [facility]) Last visit started bupropion XL 150 mg daily. Notes improvement in mood and has more motivation. Reports she's been keeping herself busy . Denies depressed mood, denies suicidal ideations. Reports experiencing few spikes in anxiety and irritability, possibly attributed to Wellbutrin, though these episodes have subsided in past couple of days. Anxiety described as intense at times. Sleep disturbances persist, requiring nightly medication. Uses trazodone for sleep, which has been effective Patient's brother's health discussed, with progression of dementia, now in hospice care due to failure to thrive. Expresses emotional distress regarding family history of dementia. Has been spending more time in the gym, finding it beneficial for her physical and mental health. Blood pressure eelvated today, she reports likely due to jsut leaving the gym Substance update: ETOH: 3-4 b eers a day, throughout the evening just sips on it, I don't drink enough t o get drunk . caffeine in morning, denies cannabis, other drugs denies, quit smoking in February, still has cravings. * ROS: G eneral / Constitutional: Patient denies f atigue, headache, l ightheadedness.? C ardiovascular: Patient denies c hest pain, dizziness, palpitations. ? G astrointestinal: Patient denies n ausea, vomiting, change in bowel habits.? N eurologic: Patient denies c onfusion, tic, tremor. P sychiatric: Patient denies s uicidal thoughts, auditory / visual hallucinations, delusions, psychosis, involuntary movements. S ee HPI. * Medical History: * Surgical History: O ophorectomy (10374) 05/20/1998Hysterectomy (73896) 05/20/1998foot surgery 05/20/1998Removal of gallbladder (96435) 07/01/1997 * Hospitalization/Major Diagno stic Procedure: D [...] since you last smoked? 6 -12 months. M igrated Social History: M igrated Social History: Alcohol Intake: Moderate 07/13/2022,Tobacco Years: Current every day smoker 05/28/2022. D rug/Alcohol: D rugs H ave you used drugs other than those for medical reasons in the past 12 months??No. C affeine I ntake: 1 -2 cups per day. D o you smoke marijuana?: No. Do you drink alcohol?: Yes, Daily 3-4 drinks. AUDIT- C (Standard) D id you have a drink [...] drink containing alcohol in the past year? D aily or almost daily (4 points), P oints 6 ,?Interpretation P ositive. M iscellaneous: S afety issues D o you feel safe at home? Y es, A re there any firearms in the house? N o. 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 Advance Care Planning Are you your own decision-maker Y es, D o you have Power of Nitrocellulose Maker for Health or Medical? N o. * Medications: T akingPriLOSEC OTC 20 MG Tablet Delayed Release 1 tablet 1/2 to 1 hour before morning meal Orally Once a day Atorvastatin Calcium 40 MG Tablet Oral Alendronate Sodium 70 MG Tablet Oral Vitamin D3 Adult Gummies 25 MCG (1000 UT) Tablet Chewable Oral Sertraline HCl 100 MG Tablet 1 tablet every morning Oral Once a day buPROPion HCl ER (XL) 150 MG Tablet Extended Release 24 Hour 1 tablet in the morning Orally Once a day traZODone HCl 100 MG Tablet 1 tablet at bedtime as needed for sleep Oral Once a day As neededTaking PriLOSEC OTC 20 MG Tablet Delayed Release 1 tablet 1/2 to 1 hour before morning meal Orally Once a day Taking Atorvastatin Calcium 40 MG Tablet Oral Taking Alendronate Sodium 70 MG Tablet Oral Taking Vitamin D3 Adult Gummies 25 MCG (1000 UT) Tablet Chewable Oral Taking Sertraline HCl 100 MG Tablet 1 tablet every morning Oral Once a day Taking buPROPion HCl ER (XL) 150 MG Tablet Extended Release 24 Hour 1 tablet in the morning Orally Once a day Taking traZODone HCl 100 MG Tablet 1 tablet at bedtime as needed for sleep Oral Once a day As neededDiscontinuedPravastatin Sodium 20 MG Tablet Oral Medication List reviewed and reconciled with the patientDiscontinued Pravastatin Sodium 20 MG Tablet Oral Medication List reviewed and reconciled with the patient * Allergies: C pacoeinbela: Allergy - Onset Date 11/21/2023no[Allergies Verified] Objective: * Vitals: B P:150/76mm Hg, Wt:206lbs, Wt-k.44 kg, Ht: 66.00 in, Ht-cm: 167.64 cm, BMI:33.25Index, Body Surface Area: 2.08. * Examination: P sychiatry: Appearance: a lert, groomed, a ppears well rested. In no acute distress. Abnormal body movements: n one noted. Affect / mood: f ull range, appropriate. Attention: n ormal in conversation. Attitude: c ooperative, open-minded with collaborative approach. Homicidal ideation: n one. Suicidal ideation: n one. Memory status: n o impairment noted. Degree of awareness of surroundings: w ithin normal limits.? Delusions: n o. Hallucinations: n o. Insight: g ood. Intellectual functioning: n o impairment noted. Judgement: g ood. Orientation: a wake, alert and oriented x 3. Psychomotor activity: w ithin normal range. Speech / language: c lear and coherent, appropriate pitch/modulation, normal rate, volume, and articulation (RVR), proper grammar used. Thought content: a ppropriate. Thought process: i ntact. Assessment: * Assessment: 1. M ajor depressive disorder, recurrent, mild - F33.0 (Primary) 2 . G eneralized anxiety disorder - F41.1 3 . P rimary insomnia - F51.01 4 . A lcohol use, unspecified, uncomplicated - F10.90 Assessment and Plan: Depression - Stable, improved mood and motivation with adding bupropion XL Plan: - continue sertraline 100 mg daily - Continue bupropion XL 150 mg daily in the morning Anxiety - overall well-controlled Plan: - Continue Sertraline 100 mg daily Insomnia - reports effective management Plan: - Continue Trazodone 100 mg nightly as needed. Alcohol Use - reports moderate alcohol consumption, 3-4 drinks daily, h istory of heavier drinking Plan: - Encourage moderation in alcohol consumption and monitor intake. - Discussed risks of alcohol consumption and psychotropic medications Follow-Up in 3 months, sooner if concerns arise Plan: * Treatment: 2. G eneralized anxiety disorder Refill Sertraline HCl Tablet, 100 MG, 1 tablet every morning, Oral, Once a day, 90 days, 90, Refills 1. 3. P rimary insomnia Refill traZODone HCl Tablet, 100 MG, 1 tablet at bedtime as needed for sleep, Oral, Once a day As needed, 90 days, 90 Tablet, Refills 1. * Procedure Codes: 9 6127 BEHAV ASSMT W/SCORE & DOCD/STAND [id number] PREHTN/HTN BP DOC INDCD F/U [id number] VISIT COMPLEXITY INHERENT TO ONGOING CARE RELATED TO A PATIENT'S SINGLE, SERIOUS CONDITION OR A COMPLEX [id number] MOST RECENT SYSTOLIC BP >= 140MM HG * Preventive Medicine: Counseling: B P Management: F IRST HYPERTENSIVE BP READING FOLLOW-UP PLAN: F ollow-up 1 month Follow up with your PCP, Antoni POPE RECOMMENDATION: Antoni pope education, REFERRAL TO ALTERNATIVE / PRIMARY CARE PROVIDER: R eferral to general medical service,?WEIGHT REDUCTION RECOMMENDATION: W eight-reducing diet education, D IETARY RECOMMENDATIONS: D iet education Dietary Healthy-Heart Diet. P atient Education: G eneral Education?Assessment and plan reviewed with patient.Educated on diagnoses and recommended treatment options.Educated on risks/benefits of medications, including reason for medications and potential side effects.Alternatives and expected course without treatment reviewed.Education given regarding compliance with medication and expectations regarding adherence to or inconsistent usage of medication.Educated that it can take weeks to see full therapeutic benefits of psychotropic medications and encouraged to trust the process.Educated on good sleep hygiene and importance of adequate sleep on both mental and overall health and well-being.Patient asked appropriate questions, verbalized understanding, and agreed to the recommended treatment and to continue to be followed.Encouraged to reach out if problems, questions, or concerns arise.Educated on suicide hotlines, resources, and safety should suicidal thoughts occur.. * Follow Up: 3 Months * Billing Information: * Visit Code: 95426 OFFICE OUTPATIENT VISIT 25 MINUTES DETAILED HISTORY AND EXAM/MODERATE MEDICAL DECISION MAKING. Modifiers: SA * Procedure Codes: 61813 BEHAV ASSMT W/SCORE & DOCD/STAND INSTRUMENT. G8950 PREHTN/HTN BP DOC INDCD F/U DOC. G2211 VISIT COMPLEXITY INHERENT TO ONGOING CARE RELATED TO A PATIENT'S SINGLE, SERIOUS CONDITION OR A COMPLEX CONDITION. G8753 MOST RECENT SYSTOLIC BP >= 140MM HG. * ENGINEERING TEACHER Electronically co-signed by Tereso Padilla MD on 10/29/2024 at 01:32 PM HEAT ENGINEERING TEACHER Sign off status: Completed Addendum: * true * Provider: Any Guerra Date: 10/29/2024 Generated for Grant hamlin/Charla/Kat on: 11/13/2024 09:42 AM HEAT ENGINEERING TEACHER History and Physical Notes * HPI (History of Present Illness) Category Sub-Category Detail Notes Category Not es History of Presenting Problem 69 y/o, female, 40 years, 2 grown kids, here for follow up related to depression, anxiety, insomnia. Stressors: she is POA for brother who has dementia (he is in [facility]) Last visit started bupropion XL 150 mg daily. Notes improvement in mood and has more motivation. Reports she's been keeping herself busy . Denies depressed mood, denies suicidal ideations. Reports experiencing few spikes in anxiety and irritability, possibly attributed to Wellbutrin, though these episodes have subsided in past couple of days. Anxiety described as intense at times. Sleep disturbances persist, requiring nightly medication. Uses trazodone for sleep, which has been effective Patient's brother's health discussed, with progression of dementia, now in hospice care due to failure to thrive. Expresses emotional distress regarding family history of dementia. Has been spending more time in the gym, finding it beneficial for her physical and mental health. Blood pressure eelvated today, she reports likely due to jsut leaving the gym Substance update: ETOH: 3-4 beers a day, throughout the evening just sips on it, I don't drink enough to get drunk . caffeine in morning, denies cannabis, other drugs denies, quit smoking in February, still has cravings. Depression screening PHQ-9 Little interest or pleasure in doing things: Not at all Feeling down, depressed, or hopeless: No t at all Trouble falling or staying asleep, or sl eeping too much: Not at all Feeling tired or having little energy: N ot at all Poor appetite or overeating: Not at all Feeling bad about yourself o r that you are a failure, or have let yourself or your family down: Not at all Trouble concentrating on thi ngs, such as reading the newspaper or watching television: Not at all Moving or speaking so slowly that other people could have noticed; or the opposite, being so fidgety or restless that you have been moving around a lot more than usual: Not at all Thoughts that you would be b willy off or of hurting yourself in some way: Not at all Total Score: 0 Interpretation: Minimal Depression Intervention Depression Screening Findings: N egative Suicide Risk Assessment Performed: ____ Depression Screening CLARE-7 (2018 Edition) Feelin g [...] Not at all Total CLARE-7 Score: 2 If you checked any problems, how difficult have they made it for you to do your work, take care of things at home, or get along with other people?: Not difficult at all Interpretation of Total: (0 to 4) No Anx iety [place]-Suicide Severity Rating Scale Suicide Risk (CSRS-screener) in [...] Detail Notes Category Not es Psychiatry Appearance: alert, groomed, appears well rested. In no acute distress Attitude: cooperative, open-mi nded with collaborative approach Psychomotor activity: within normal rang e Abnormal body movements: none noted Attention: normal in conversati on Degree of awareness of surroundings: wit hin normal limits Orientation: awake, alert and wilda ented x 3 Affect / mood: full range, appropri ate Speech / language: clear and coherent, appropriate pitch/modulation, normal rate, volume, and articulation (RVR), proper grammar used Insight: good Judgement: good Thought process: intact Thought content: appropriate Suicidal ideation: none Homicidal ideation: none Intellectual functioning: no impairment noted Memory status: no impairment noted Delusions: no Hallucinations: no
--- OUTSIDE RECORDS SUMMARY | 2024-11-13 09:42 | XMS_ITS | Patient Health Summary ---
Author Organization [facility] [employer] Address [address] [place] [address] Care Team Providers Care Boarding Machine Operator Name Role Phone Balbina Canas MD Primary Care Provider [phone] Note from [facility] [employer] [facility],non-owned Affiliates and Associated Physician Practices is amultiple site organization consisting of ambulatory clinics and hospital sitesin [place], [place], [place] and [place]. This disclosure is being madepursuant to the Care Everywhere program and may not contain all information available regarding this patient. Last updated 18.[facility] [employer] Allergies No known active allergies Medications * Be aware that medications may not be up to date on this document. Alwaysverify current medications with the patient. * citalopram (CELEXA) 20 MG tablet Take 20 mg by mouth 3 times daily. Social History Tobacco Use Types Packs/Day Years Used Date Smoking Tobacco: Every Day Smokeless Tobacco: Never Alcohol Use Standard Drinks/Week Comments Yes 0 (1 standard drink = 0.6 oz pur e alcohol) beer Sex and Gender Information Value Date Recorded Sex Assigned at Not on file Gender Identity Not on file Sexual Orientation Not on file Last Filed Vital Signs Vital Sign Reading Time Taken Comments Blood Pressure 116/83 04/23/2013 10:30 AM CDT Pulse 84 04/23/2013 10:30 AM CDT Temperature - - Respiratory Rate 19 04/23/2013 9:56 AM CDT Oxygen Saturation 0% 04/23/2013 10:30 AM CDT Inhaled Oxygen Concentration - - Weight 86.2 kg (190 lb) 04/23/2013 8:59 AM CDT Height 168.9 cm (5' 6.5 ) 04/23/2013 8:59 AM CDT Body Mass Index 30.21 04/23/2013 8:59 AM CDT Procedures * COLONOSCOPY EXCISION LESION CAUTERY BY SNARE(Performed 04/23/2013) Performed for Special screening for malignant neoplasms, colon * COLONOSCOPY SCREEN(Performed 04/23/2013) Performed for Special screening for malignant neoplasms, colon * PATHOLOGY TISSUE EXAM (STL)(Performed 04/23/2013) Performed for Screen for colon cancer * ENDOSCOPY, COLON, SCREENING(Performed 04/23/2013) Results * GROSS + MICRO EXAM (STL) (04/23/2013 9:50 AM CDT) Case Report Surgical Pathology Report Case: [id number] Authorizing Provider: Darren Sibley MD Ordering Provider: Darren Sibley MD Ordering Location: [facility] Collected: 04/23/2013 9:50 AM Pathologist: Mia Hendrickson MD Received: 04/23/2013 11:56 AM Signed Out: 04/24/2013 10:22 AM (Final) Specimen: Polyp Transverse 04/24/2013 10:22 AM CDT [facility] Final Diagnosis 1. Transverse colon, polyp, biopsy: -- Tubular adenoma Dale/ruthy 04/24/2013 10:22 AM T [facility] Gross Description The specimen is submitted fixed in formalin in one container for gross and microscopic examination, labeled with the patient's name, Magaly Lopez and transverse polyps . The specimen consists of 11 fragments of yellow-alexandra tissue ranging in size from 0.1 to 0.2 cm in greatest dimension. The specimen is submitted in toto in cassette A1. EE/na 04/24/2013 10:22 AM CDT [facility] Microscopic Description Sections show fragments of colonic mucosa with features of tubular adenoma. High grade dysplasia or malignancy is not seen. MGC/ruthy 04/24/2013 10:22 AM CDT [facility] Synoptic Report 04/24/2013 10:22 AM CDT [facility] Pathology/Cytolo gy POLYP / Unknown 04/23/2013 9:50 AM CDT 04/23/2013 11:56 AM CDT Darren Sibley MD LAB - PATHOLOGY/CYTO LOGY ORDERABLES [facility] [address] [place] [address] * ENDOSCOPY, COLON, SCREENING (04/23/2013 9:35 AM CDT) Report Endoscopy POC _ Patient Name: Magaly Lopez Procedure Date: 04/23/2013 9:35 AM Date of : 1955 Admit Type: Outpatient Gender: Female Age: 58 Attending MD: Darren Sibley MD _ Procedure: Colonoscopy Indications: Screening for colorectal malignant neoplasm Providers: Darren Sibley MD (Doctor), Sarah Beth Urbina RN, Nasima Luciano RN Referring MD: Balbina Canas (Referring MD) Medicines: Midazolam 8 mg IV, Meperidine 75 mg IV Complications: No immediate complications. _ Procedure: Pre-Anesthesia Assessment: - Prior to the procedure, a History and Physical was performed, and patient medications and allergies were reviewed. The patient is competent. The risks and benefits of the procedure and the sedation options and risks were discussed with the patient. All questions were answered and informed consent was obtained. Patient identification and proposed procedure were verified by the physician and the nurse in the procedure room. Mental Status Examination: alert and oriented. Airway Examination: normal oropharyngeal airway and neck mobility. Respiratory Examination: clear to auscultation. CV Examination: normal. Prophylactic Antibiotics: The patient does not require prophylactic antibiotics. Prior Anticoagulants: The patient has taken no previous anticoagulant or antiplatelet agents. ASA Grade Assessment: II - A patient with mild systemic disease. After reviewing the risks and benefits, the patient was deemed in satisfactory condition to undergo the procedure. The anesthesia plan was to use moderate sedation / analgesia (conscious sedation). Immediately prior to administration of medications, the patient was re-assessed for adequacy to receive sedatives. The heart rate, respiratory rate, oxygen saturations, blood pressure, adequacy of pulmonary ventilation, and response to care were monitored throughout the procedure. The physical status of the patient was re-assessed after the procedure. After I obtained informed consent, the scope was passed under direct vision. Throughout the procedure, the patient's blood pressure, pulse, and oxygen saturations were monitored continuously. The Colonoscope was introduced through the anus and advanced to the cecum, identified by appendiceal orifice & ileocecal valve. The colonoscopy was performed without difficulty. The patient tolerated the procedure well. The quality of the bowel preparation was good. Impression: - Two 14 mm polyps in the proximal transverse colon. Resected and retrieved. - The examination was otherwise normal on direct and retroflexion views. Findings: The digital rectal exam was normal. Pertinent negatives include normal sphincter tone. Two pedunculated polyps were found in the proximal transverse colon. The polyps were 14 mm in size. These polyps were removed with a hot snare. Resection and retrieval were complete. Estimated blood loss was minimal. The exam was otherwise without abnormality on direct and retroflexion views. _ Recommendation: - Discharge patient to home (ambulatory). - Continue present medications. - Repeat colonoscopy in 3 - 5 years for surveillance. - Return to primary care physician PRN. Procedure Code(s): --- Professional --- 59115, Colonoscopy, flexible, proximal to splenic flexure; with removal of tumor(s), polyp(s), or other lesion(s) by snare technique Diagnosis Code(s): --- Professional --- V76.51, Special screening for malignant neoplasms of colon 211.3, Benign neoplasm of colon CPT (R) 2012 [employer]. All Rights Reserved. The codes documented in this report are preliminary and upon community manager review may be revised to meet current compliance requirements. Darren Sibley MD 04/23/2013 10:01 AM This report has been signed electronically. Number of Addenda: 0 Note Initiated On: 04/23/2013 9:35 AM [facility] 04/23/2013 9:35 AM CDT Narrative [facility] - 04/23/2013 10:03 AM CDT Procedure Note Darren Sibley MD - 04/23/2013 10:03 AM CDT Darren Sibley MD GI PROCEDURE ORDERAB LES [facility] Care Teams Boarding Machine Operator Relationship Specialty Start Date End Date Balbina Canas MD [address] [address] PCP - General Internal Medicine 04/23/13
--- OUTSIDE RECORDS SUMMARY | 2024-11-13 09:42 | XMS_ITS | Referral Summary ---
Author Organization [facility] Address [address] [place] [address] Care Team Providers Care Drop Wire Hanger Name Role Phone Balbina Canas MD Primary Care Provider [phone] Source Comments [facility] [employer],non-owned Affiliates and Associated Physician Practices is amultiple site organization consisting of ambulatory clinics and hospital sitesin [place], [place], [place] and [place]. This disclosure is being madepursuant to the Care Everywhere program and may not contain all information available regarding this patient. Last updated 18.[facility] [employer] Allergies No known active allergies Medications * Be aware that medications may not be up to date on this document. Alwaysverify current medications with the patient. Medication Sig Dispensed Refills Start Date End Date Status citalopram (CELEXA) 20 MG tablet Take 20 mg by mouth 3 times daily. Active Social History Tobacco Use Types Packs/Day Years [...] Mass Index 30.21 04/23/2013 8:59 AM CDT Plan of Treatment Not on file Procedures Procedure Name Priority Date/Time Associated Diagnosis Comments ENDOSCOPY, COLON, SCREENING Routine 04/23/2013 9:35 AM CDT from Last 3 Months or Most Recently Relevant to Health Maintenance Results * ENDOSCOPY, COLON, SCREENING (04/23/2013 9:35 AM CDT) Report Endoscopy POC _ Patient Name: Tam Gay Procedure Date: 04/23/2013 9:35 AM Date of [...] physician PRN. Procedure Code(s): --- Professional --- 26847, Colonoscopy, flexible, proximal to splenic flexure; with removal of tumor(s), polyp(s), or other lesion(s) by snare technique Diagnosis Code(s): --- Professional --- V76.51, Special screening for malignant neoplasms of colon 211.3, Benign neoplasm of colon CPT (R) 2012 [employer] [place] [employer]. All Rights Reserved. The codes documented in this report are preliminary and upon attraction attendant review may be revised to meet current compliance requirements. Darren Sibley MD 04/23/2013 10:01 AM This report has been signed electronically. Number of Addenda: 0 Note Initiated On: 04/23/2013 9:35 AM [facility] 04/23/2013 9:35 AM CDT Narrative [facility] - 04/23/2013 10:03 AM CDT Procedure Note Darren Sibley MD - 04/23/2013 10:03 AM CDT Darren Sibley MD GI PROCEDURE ORDERAB LES [facility] from Last 3 Months or Most Recently Relevant to Health Maintenance Care Teams Drop Wire Hanger Relationship Specialty Start Date End Date Balbina Canas MD [address] [address] PCP - General Internal Medicine 04/23/13
--- OUTSIDE RECORDS SUMMARY | 2024-11-13 09:42 | XMS_ITS | Clinical Summary ---
Author Organization [facility] [employer] Address [address] [place] [address] Care Team Providers Care Pleating Machine Operator Name Role Phone Balbina Canas MD Primary Care Provider [phone] Source Comments [facility] [employer],non-owned Affiliates and Associated Physician Practices is amultiple site organization consisting of ambulatory clinics and hospital sitesin [place], [place], [place] and [place]. This disclosure is being madepursuant to the Care Everywhere program and may not contain all information available regarding this patient. Last updated 18.[facility] [employer] Allergies No known active allergies Medications * Be aware that medications may not be up to date on this document. Alwaysverify current medications with the patient. Medication Sig Dispensed Refills Start Date End Date Status citalopram (CELEXA) 20 MG tablet Take 20 mg by mouth 3 times daily. Active Family History Medical History Relation Name Comments Cancer Father colon, lung Relation Name Status Comments Father Social History Tobacco Use Types Packs/Day Years [...] 04/23/2013 8:59 AM CDT Plan of Treatment Health Maintenance Due Date Last Done Comments BONE DENSITY TESTING 1955 COLOGUARD (AGES 45-75) - COL ON CA SCREENING 1955 CT COLONOGRAPHY - COLON CA SCREENING 1955 FIT - COLON CA SCREENING 1955 FLEX SIG - COLON CA SCREENING 1955 LIPID TESTING 1955 MAMMOGRAM 1955 HEPATITIS C SCREENING 04/15/1973 DTAP/TDAP/TD VACCINES (1 - Tdap) 1974 PNEUMOCOCCAL VACCINE 50+ (1 of 2 - PCV) 1974 ZOSTER VACCINE (1 of 2) 2005 COLON MONITORING 04/23/2023 04/23/2013, 04/23/2013, 04/23/2013 COLONOSCOPY - COLON CA SCREENING 04/23/2023 04/23/2013, 04/23/2013, 04/23/2013 Colorectal Cancer Screening 04/23/2023 COVID-19 VACCINE (1 - 2023-2 5 season) 2024 INFLUENZA VACCINE (#1) 2024 DEPRESSION SCREENING 09/19/2024 MEDICARE AWV CALENDAR YEAR 2024 Respiratory Syncytial Virus (RSV) Vaccine Pt: or over 60 yrs (1 - 1-dose 75+ series) 2030 HEPATITIS B VACCINE Aged Out No longe r eligible based on patient's age to complete this topic HIB VACCINE Aged Out No longer eligi ble based on patient's age to complete this topic HPV VACCINE Aged Out No longer eligi ble based on patient's age to complete this topic MENINGOCOCCAL (Group B) VACCINE Aged Out No longer eligible b ased on patient's age to complete this topic MENINGOCOCCAL VACCINE Aged Out No jacoby sourav eligible based on patient's age to complete this topic Procedures Procedure Name Priority Date/Time Associated Diagnosis [...] physician PRN. Procedure Code(s): --- Professional --- 89769, Colonoscopy, flexible, proximal to splenic flexure; with removal of tumor(s), polyp(s), or other lesion(s) by snare technique Diagnosis Code(s): --- Professional --- V76.51, Special screening for malignant neoplasms of colon 211.3, Benign neoplasm of colon CPT (R) 2012 [employer]. All Rights Reserved. The codes documented in this report are preliminary and upon pre coder review may be revised to meet current compliance requirements. Darren Sibley MD 04/23/2013 10:01 AM This report has been signed electronically. Number of Addenda: 0 Note Initiated On: 04/23/2013 9:35 AM [facility] 04/23/2013 9:35 AM CDT Narrative [facility] - 04/23/2013 10:03 AM CDT Procedure Note Darren Sibley MD - 04/23/2013 10:03 AM CDT Darren Sibley MD GI PROCEDURE ORDERAB LES [facility] from Last 3 Months or Most Recently Relevant to Health Maintenance Care Teams Pleating Machine Operator Relationship Specialty Start Date End Date Balbina Canas MD [address] [address] [place] [address] PCP - General Internal Medicine 04/23/13
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
== END 2024-11-13 09:01 | disposition home or self-care (01) ==
PROVIDERS: PCP Family Medicine; Visit Provider Family Medicine
DX: Z12.2 Encounter for screening for malignant neoplasm of respiratory organs (principal); Z87.891 Personal history of nicotine dependence
CPT/HCPCS: 71271

== ENCOUNTER 2025-06-17 08:40 | Outpatient (CLI) | payer OTHER, SELFPAY ==
--- OUTSIDE RECORDS SUMMARY | 2025-04-30 06:00 | XMS_ITS ---
Author Organization [facility] [employer] [facility] Address [address] [facility] [address] [facility] [address] [place] [address] Care Team Providers Care Caustic Pump Operator Name Role Phone Carson LARES, Deshawn Primary Care Provider Chantell Hand Unavailable [phone] REASON FOR VISIT 3 month f/u Social History Sex Assigned At : Social History Observation Description Sex Assigned At Female Encounters Encounter Location Date Provider [facility] [address] [facility] [address] [place] [address] 04/30/2025 Chantell Guerra Plan Of Treatment No Information Progress Notes * TAM GAY KDOB: [birth year] (70 yo F)Acc No.[id number]:04/30/2025 Patient: Dale TAM WINTER Provider: Any Guerra :1955 A ge:70 Y S ex:Female Date:04/30/2025 Address:[address] [place] [address], [address], [place], [place] Pcp:Deshawn Byrd MD Subjective: * Chief Complaints: * 3 month f/u * Electronic signature of Teo Guerra on 06/17/2025 at 08:52 AM CDT Sign off status: Pending * Provider: Any Guerra Date: 04/30/2025 Generated for Printi ng/Faxing/eTransmitting on: 0 06/17/2025 08:52 AM CDT
--- NOTE | ~2025-06-17 | DEXA_ITS ---
Bone Density Report Name: TAM GAY Age: 70 Sex: Female Ethnicity: White Date of : 1955 Indication: postmenopausal osteoporosis; monitoring treatment; height loss; hysterectomy; secondary osteoporosis; Referring Provider: MICHELL PUENTES Study: Bone densitometry was performed. Exam Date: June 17, 2025 Accession number: [id number] Bone Density: Region BMD T-score Z-score Classification AP Spine(L1-L4) 0.799 -2.3 -0.1 Osteopenia Femoral Neck (Left) 0.676 -1.6 0.2 Osteopenia Total Hip (Left) 0.889 -0.4 1.1 Normal Femoral Neck (Right) 0.680 -1.5 0.3 Osteopenia Total Hip (Right) 0.853 -0.7 0.8 Normal Total Hip Mean 0.871 -0.6 1.0 Normal World Health Organization criteria for BMD impression classify patients as: Normal (T-score at or above -1.0), Osteopenia (T-score between -1.0 and -2.5), or Osteoporosis (T-score at or below -2.5). 10-year Fracture Risk: FRAX not reported because: Treated for osteoporosis Previous Exams: Region Exam Age BMD T-score BMD Change BMD Change Date g/cm2 vs Baseline vs Previous AP Spine (L1-L4) 06/17/2025 70 0.799 -2.3 0.085 (11.9%)* 0.085 (11.9%)* 03/23/2023 67 0.714 -3.0 Total Hip(Left) 06/17/2025 70 0.889 -0.4 0.108 (13.8%)* 0.108 (13.8%)* 03/23/2023 67 0.781 -1.3 Total Hip(Right) 06/17/2025 70 0.853 -0.7 0.091 (11.9%)* 0.091 (11.9%)* 03/23/2023 67 0.762 -1.5 *Denotes significance at 95% confidence level, LSC for AP Spine = 0.022 g/cm2, LSC for Total Hip = 0.027 g/cm2 Clinical Information Provided by Patient: Has secondary osteoporosis Is being treated for osteoporosis Has used the following medications: Vitamin D, Calcium Has the following medical conditions: Hysterectomy Patient maximum height was 66.5 Menopause Age: 40 Does not regularly consume dairy products Drinks caffeinated beverages Onset of menses at age 14 Number of children 2 Impression: The patient has low bone mass, based on the Total Spine T-score. No significant bone loss was observed. Discussion: PATIENT UNDER TREATMENT WITH NO SIGNIFICANT BMD LOSS SINCE LAST EXAM. In an untreated patient, BMD typically declines with age. A lack of decline or gain is usually a sign that treatment is efficacious and fracture risk is reduced. It is important to ask patients whether they are taking their medications and to encourage continued and appropriate compliance with their osteoporosis therapies to reduce fracture risk. It is also important to review their risk factors and encourage appropriate calcium and vitamin D intakes, exercise, fall prevention and other lifestyle measures. Follow-Up: Consider a repeat BMD and Vertebral Fracture Assessment (VFA) exam in 2 years or sooner if medically necessary, to reassess this patient's status. Reported by: JOANNA on 06/17/2025 9:24:00 AM. Reviewed, dictated and finalized at location A.
--- OUTSIDE RECORDS SUMMARY | 2025-06-17 08:53 | XMS_ITS | Patient Health Record ---
Author Organization [facility] Address [address] [place] [address] Care Team Providers Care Nuclear Equipment Test Engineer Name Role Phone Deshawn Byrd MD Primary Care Provider UnavailChantell Peter Unavailable [phone] Divina Huff Unavailable [phone] Allergies Allergen (clinical drug ingredient) Drug/Non Drug Allergy documented on EMR Reaction Allergy Type Onset Date Status codeine Codeine Unknown Drug Allergy 11/21/2023 Active Reason For Referral No Information Medications Medication SIG (Take, Route, Frequency, Duration) Notes Start Date End Date Status traZODone HCl 100 MG Tablet 1 tablet at bedtime as needed for sleep Oral Once a day; Duration: 90 days As needed Active hydrOXYzine HCl 10 MG Tablet 1 tablet Oral Once a day; Duration: 30 days PA APPROVED 01/25/2025 Active Atorvastatin Calcium 40 MG Tablet Oral 11/21/2023 Active PriLOSEC OTC 20 MG Tablet Delayed Release 1 tablet 1/2 to 1 hour before morning meal Orally Once a day Active Alendronate Sodium 70 MG Tablet Oral 11/21/2023 Active Vitamin D3 Adult Gummies 25 MCG (1000 UT) Tablet Chewable Oral 11/21/2023 Active buPROPion HCl ER (XL) 150 MG Tablet Extended Release 24 Hour 1 tablet in the morning Orally Once a day; Duration: 90 days Active Sertraline HCl 100 MG Tablet 1 tablet every morning Oral Once a day; Duration: 90 days Active Social History Tobacco Use: Social History Observation Description Date Details (start date - stop date) Former Smoker NA - 02/19/2024 Sex Assigned At : Social History Observation Description Sex Assigned At Female Social History Miscellaneous: Social Info Question Answer Notes Advance Care Planning Are you your own decision-maker Yes Do you have Power of School Program Director for Health or [facility]? No Safety issues: Do you feel safe at home? Yes Are there any firearms in the house? No Drug/Alcohol: Social Info Question Answer Notes Drugs Have you used drugs other than those for medical reasons in the past 12 months? No AUDIT-C (Standard) Did you have a drink containing alcohol in the past year? Yes How often did you have six or more drinks on one occasion in the past year? Less than monthly (1 point) How many drinks did you have on a typical day when you were drinking in the past year? 3 or 4 drinks (1 point) How often did you have a drink containing alcohol in the past year? Daily or almost daily (4 points) Points 6 Interpretation Positive Caffeine Intake: 1-2 cups per day Tobacco Use: Social Info Question Answer Notes Tobacco Control (Standard) Tobacco use: Former smoker When did you stop smoking? 02/19/2024 How long has it been since you last smoked? 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 No Do you drink alcohol? Yes, Daily 3-4 drinks Problems Problem Type SNOMED Code ICD Code Onset Dates Problem Status W/U Status Risk Notes Problem Tobacco user (692833684) Nicotine dependence, unspecified, uncomplicated (F17.200) 4 Active confirmed Problem Mild recurrent major depression (83232625) Major depressive disorder, recurrent, mild (F33.0) 2 Active confirmed Problem Recurrent major depression in full remission (27706301) Major depressive disorder, recurrent, in full remission (F33.42) Active confirmed Problem Generalized anxiety disorder (44022392) Generalized anxiety disorder (F41.1) Active confirmed Problem Primary insomnia (1422434) Primary insomnia (F51.01) 4 Active confirmed Problem Current drinker of alcohol (finding) (481451) Alcohol use, unspecified, uncomplicated (F10.90) 4 Active confirmed Vital Signs Respiratory Rate 16 /min 01/25/2025 Height-cm 167.64 cm 01/25/2025 Blood pressure diastolic 76 mm Hg 10/29/2024 Weight-kg 93.44 kg 10/29/2024 Height 66.00 in 01/25/2025 Blood pressure systolic 150 mm Hg 10/29/2024 Weight 206 lbs 10/29/2024 BMI 33.25 kg/m2 10/29/2024 Encounters Encounter Location Date Provider Diagnosis [address] [address] 08/27/2024 Chantell Guerra Generalized anxiety disorder F41.1 ; Major depressive disorder, recurrent, mild F33.0 ; Primary insomnia F51.01 and Alcohol use, unspecified, uncomplicated F10.[address] [address] 10/29/2024 Chantell Guerra Generalized anxiety disorder F41.1 ; Major depressive disorder, recurrent, mild F33.0 ; Primary insomnia F51.01 and Alcohol use, unspecified, uncomplicated F10.[address] [address] 01/25/2025 Divina Huff Generalized anxiety disorder F41.1 ; Major depressive disorder, recurrent, mild F33.0 ; Primary insomnia F51.01 ; Alcohol use, unspecified, uncomplicated F10.90 and Negative depression screening Z13.[address] [address] 08/24/2024 Chantell Guerra Assessments Encounter Date Diagnosis (ICD Code) Assessment Notes Treatment Notes Treatment Clinical Notes Section Notes 08/27/2024 Major depressive disorder, recurrent, mild (ICD-10 [...] 2 months, sooner if concerns arise 10/29/2024 Generalized anxiety disorder (ICD-10 - F41.1) [...] in 3 months, sooner if concerns arise 01/25/2025 Generalized anxiety disorder (ICD-10 - F41.1) Electronic Prior Authorization was requested for hydrOXYzine HCl 10 MG Tablet. Provider can order medication once approval received., Generalized Anxiety Disorder: Care Instructions material was published, Learning About Generalized Anxiety Disorder material was published, Learning About Anxiety Disorders material was published Assessment and Plan: Depression - Stable, improved mood and motivation with adding bupropion XL Plan: - continue sertraline 100 mg daily - Continue bupropion XL 150 mg daily in the morning Anxiety - overall well-controlled Plan: - Continue Sertraline 100 mg daily Patient reported has itching from -start hydroxyzine 10 mg at night for itching also help anxiety plan to see PCP 03/13 and will call to see PCP sooner with itch s/e from [facility] Insomnia - reports effective management Plan: - [...] in 3 months, sooner if concerns arise 01/25/2025 Major depressive disorder, recurrent, mild (ICD-10 - F33.0) Preventing Depression From Coming Back: Care Instructions material was published, Seasonal Affective Disorder: Care Instructions material was published, Depression Treatment: Care Instructions material was published, Learning About How to Get Help During a Mental Health Crisis material was published, Learning About Depression Screening material was published Assessment and Plan: Depression - Stable, improved mood and motivation with adding bupropion XL Plan: - continue sertraline 100 mg daily - Continue bupropion XL 150 mg daily in the morning Anxiety - overall well-controlled Plan: - Continue Sertraline 100 mg daily Patient reported has itching from -start hydroxyzine 10 mg at night for itching also help anxiety plan to see PCP 03/13 and will call to see PCP sooner with itch s/e from [facility] Insomnia - reports effective management Plan: - Continue Trazodone 100 mg nightly as needed. Alcohol Use - reports moderate alcohol consumption, 3-4 drinks daily, history of heavier drinking Plan: - Encourage moderation in alcohol consumption and monitor intake. - Discussed risks of alcohol consumption and psychotropic medications Follow-Up in 3 months, sooner if concerns arise 08/27/2024 Primary [...] in 3 months, sooner if concerns arise 01/25/2025 Primary insomnia (ICD-10 - F51.01) Insomnia: Care Instructions material was published, Learning About Sleeping Well material was published Assessment and Plan: Depression - Stable, improved mood and motivation with adding bupropion XL Plan: - continue sertraline 100 mg daily - Continue bupropion XL 150 mg daily in the morning Anxiety - overall well-controlled Plan: - Continue Sertraline 100 mg daily Patient reported has itching from -start hydroxyzine 10 mg at night for itching also help anxiety plan to see PCP 03/13 and will call to see PCP sooner with itch s/e from [facility] Insomnia - reports effective management Plan: - Continue Trazodone 100 mg nightly as needed. Alcohol Use - reports moderate alcohol consumption, 3-4 drinks daily, history of heavier drinking Plan: - Encourage moderation in alcohol consumption and monitor intake. - Discussed risks of alcohol consumption and psychotropic medications Follow-Up in 3 months, sooner if concerns arise 01/25/2025 Alcohol use, unspecified, uncomplicated (ICD-10 - F10.90) Learning About Substance Use Disorder material was published, Substance Use Disorder: Care Instructions material was published Assessment and Plan: Depression - Stable, improved mood and motivation with adding bupropion XL Plan: - continue sertraline 100 mg daily - Continue bupropion XL 150 mg daily in the morning Anxiety - overall well-controlled Plan: - Continue Sertraline 100 mg daily Patient reported has itching from -start hydroxyzine 10 mg at night for itching also help anxiety plan to see PCP 03/13 and will call to see PCP sooner with itch s/e from [facility] Insomnia - reports effective management Plan: - [...] in 3 months, sooner if concerns arise 01/25/2025 Negative depression screening (ICD-10 - Z13.31) Assessment and Plan: Depression - Stable, improved mood and motivation with adding bupropion XL Plan: - continue sertraline 100 mg daily - Continue bupropion XL 150 mg daily in the morning Anxiety - overall well-controlled Plan: - Continue Sertraline 100 mg daily Patient reported has itching from -start hydroxyzine 10 mg at night for itching also help anxiety plan to see PCP 03/13 and will call to see PCP sooner with itch s/e from [facility] Insomnia - reports effective management Plan: - Continue Trazodone 100 mg nightly as needed. Alcohol Use - reports moderate alcohol consumption, 3-4 drinks daily, history of heavier drinking Plan: - Encourage moderation in alcohol consumption and monitor intake. - Discussed risks of alcohol consumption and psychotropic medications Follow-Up in 3 months, sooner if concerns arise 01/25/2025 Other Bupropion material was published, Sertraline material was published, Hydroxyzine material was published, Trazodone material was published Assessment and Plan: Depression - Stable, improved mood and motivation with adding bupropion XL Plan: - continue sertraline 100 mg daily - Continue bupropion XL 150 mg daily in the morning Anxiety - overall well-controlled Plan: - Continue Sertraline 100 mg daily Patient reported has itching from -start hydroxyzine 10 mg at night for itching also help anxiety plan to see PCP 03/13 and will call to see PCP sooner with itch s/e from [facility] Insomnia - reports effective management Plan: - Continue Trazodone 100 mg nightly as needed. Alcohol Use - reports moderate alcohol consumption, 3-4 drinks daily, history of heavier drinking Plan: - Encourage moderation in alcohol consumption and monitor intake. - Discussed risks of alcohol consumption and psychotropic medications Follow-Up in 3 months, sooner if concerns arise Plan Of Treatment No Information Insurance Providers Payer Name Payer Address Payer Phone Subscriber Number Group Number Insured Name Patient Relationship to Insured Coverage Start Date Coverage End Date [employer] Medicare Replacement/ Advantage - [employer] [address] [place] [phone] [id number] TAM GAY Self - patient is the insured [place] [address] [place] [address] [id number] TAM GAY Self - patient is the insured Medical (General) History Medical History History ICD Code Problems: Current drinker Generalized anxiety disorder Mild recurrent major depression Primary insomnia former Smoker Hyperlipidemia, unspecified E78.5 GERD (gastroesophageal reflux disease) K 21.9 Surgical History Surgery Date(Month/Year) Oophorectomy (48300) 05/20/1998 Hysterectomy (13891) 05/20/1998 foot surgery 05/20/1998 Removal of gallbladder (10396) 7
--- OUTSIDE RECORDS SUMMARY | 2025-06-17 08:53 | XMS_ITS | Clinical Summary ---
Author Organization [facility] Address [address] [place] [address] Care Team Providers Care Roller Skater Name Role Phone Balbina Canas MD Primary Care Provider [phone] Source Comments [facility],non-owned Affiliates and Associated Physician Practices is amultiple site organization consisting of ambulatory clinics and hospital sitesin [place], [place], [place] and [place]. This disclosure is being madepursuant to the Care Everywhere program and may not contain all information available regarding this patient. Last updated 18.[facility] Allergies No known active allergies Medications * Be aware that medications may not be up to date on this document. Alwaysverify current medications with the patient. citalopram (CELEXA) 20 MG tablet Take 20 mg by mouth 3 times daily. Active Family History Medical History Relation Name Comments Cancer Father colon, lung Relation Name Status Comments Father Social History Tobacco Use Types Packs/Day Years Used Date Smoking Tobacco: Every Day Smokeless Tobacco: Never Alcohol Use Standard Drinks/Week Comments Yes 0 (1 standard drink = 0.6 oz pur e alcohol) beer Comments Unknown Sex and Gender Information Value Date Recorded Sex Assigned at Not on file Legal Sex Female 4:56 AM PHYSICIAN [facility]ACT[facility] Gender Identity Not on file Sexual Orientation [...] 8:59 AM CDT Height 168.9 cm (5' 6.5) 04/23/2013 8:59 AM CDT Body Mass Index [...] 04/23/2013, 04/23/2013, 04/23/2013 Colorectal Cancer Screening 04/23/2023 DEPRESSION SCREENING 09/19/2024 MEDICARE AWV CALENDAR YEAR 2024 COVID-19 VACCINE ( - 2023-2 5 season) 2025 INFLUENZA VACCINE (#1) 2025 Respiratory Syncytial Virus (RSV) Vaccine Pt: or [...] complete this topic MENINGOCOCCAL (Group B) VACCINE SHARED DECISION-MAKING Aged Out No longer eligible based on patient's age to complete this topic MENINGOCOCCAL GROUPS A/C/Y/W VACCINE Aged Out No longer eligible b [...] physician PRN. Procedure Code(s): --- Professional --- 29683, Colonoscopy, flexible, proximal to splenic flexure; with removal of tumor(s), polyp(s), or other lesion(s) by snare technique Diagnosis Code(s): --- Professional --- V76.51, Special screening for malignant neoplasms of colon 211.3, Benign neoplasm of colon CPT (R) 2012 [employer]. All Rights Reserved. The codes documented in this report are preliminary and upon professional fee coder review may be revised to meet current compliance requirements. Darren Sibley MD 04/23/2013 10:01 AM This report has been signed electronically. Number of Addenda: 0 Note Initiated On: 04/23/2013 9:35 AM [facility] 04/23/2013 9:35 AM CDT Narrative [facility] - 04/23/2013 10:03 AM CDT Procedure Note Darren Sibley MD - 04/23/2013 10:03 AM CDT Darren Sibley MD GI PROCEDURE ORDERABLES Edited [facility] from Last 3 Months or Most Recently Relevant to Health Maintenance Insurance [facility] [address] [facility] MANAGED MEDICARE ADV Care Teams Roller Skater Relationship Specialty Start Date End Date Balbina Canas MD [address] [facility] [address] [place] [address] PCP - General Internal Medicine 04/23/13
== END 2025-06-17 08:41 | disposition home or self-care (01) ==
PROVIDERS: PCP Family Medicine; Visit Provider Family Medicine
DX: Z78.0 Asymptomatic menopausal state (principal); F17.200 Nicotine dependence, unspecified, uncomplicated; Z12.39 Encounter for other screening for malignant neoplasm of breast; M85.88 Other specified disorders of bone density and structure, other site; M85.852 Other specified disorders of bone density and structure, left thigh; M85.851 Other specified disorders of bone density and structure, right thigh
CPT/HCPCS: 77080